=== PATIENT | female | born 1965 | race Two or more races ===

== ENCOUNTER 2017-10-09 12:21 | Outpatient (CLI) | payer OTHER ==
[~2017-10-09 12:21] MED LIST: LEVO-T50 MCG PO; ZIAC 10/6.25 MG1 TAB PO
== END 2017-10-09 12:27 | disposition home or self-care (01) ==
LOC: MAMO-SONO 12:21
DX: Z12.31 Encounter for screening mammogram for malignant neoplasm of breast (principal); N64.89 Other specified disorders of breast; D49.3 Neoplasm of unspecified behavior of breast

== ENCOUNTER 2019-02-25 09:10 | Outpatient (CLI) | payer OTHER | END 2019-02-25 09:18 | disposition home or self-care (01) | LOC: SONOGRAMA 09:10 → MAMO-SONO 10:15 | DX: E04.1 Nontoxic single thyroid nodule (principal) ==

== ENCOUNTER 2019-03-16 08:43 | Outpatient (CLI) | payer OTHER | END 2019-03-16 08:49 | disposition home or self-care (01) | LOC: MAMO-SONO 08:43 | DX: N60.11 Diffuse cystic mastopathy of right breast (principal); N60.12 Diffuse cystic mastopathy of left breast ==

== ENCOUNTER 2020-12-13 13:06 | Outpatient (CLI) | payer OTHER | END 2020-12-13 13:19 | disposition home or self-care (01) | LOC: MAMO-SONO 13:06 | PROVIDERS: ATTEND Surgery | DX: N60.11 Diffuse cystic mastopathy of right breast (principal); N60.12 Diffuse cystic mastopathy of left breast; Z87.898 Personal history of other specified conditions; Z12.31 Encounter for screening mammogram for malignant neoplasm of breast ==